=== PATIENT | male | born 1975 | race Caucasian/White ===

== ENCOUNTER 2020-09-29 15:26 | Emergency (ER) | payer OTHER ==
[2020-09-29] MEDS ORDERED: IBUPROFEN800 MG PO (18:15)
== END 2020-09-29 18:25 | disposition home or self-care (01) ==
LOC: FER 15:26
DX: S02.2XXA Fracture of nasal bones, initial encounter for closed fracture (principal); S00.11XA Contusion of right eyelid and periocular area, initial encounter; Z87.39 Personal history of other diseases of the musculoskeletal system and connective tissue; Y04.2XXA Assault by strike against or bumped into by another person, initial encounter; Y92.149 Unspecified place in prison as the place of occurrence of the external cause
CPT/HCPCS: 70450; 70486